=== PATIENT | male | born 1985 | race Caucasian/White ===

== ENCOUNTER 2020-07-05 23:10 | Emergency (ER) | payer BC, SELFPAY ==
--- NOTE | ~2020-07-05 | XR_ITS ---
EXAMINATION: XR chest 2V DATE: 07/05/2020 23:58 INDICATION: Chest pain TECHNIQUE: PA and lateral views of the chest were obtained. COMPARISON: Chest radiograph dated 09/14/2015 FINDINGS: The lungs remain clear with no focal airspace opacities, pulmonary edema, pleural effusion or pneumot horax. The cardiomediastinal silhouette is normal. Cholecystectomy clips in the right upper quadrant. Bones and soft tissues are unremarkable. IMPRESSION: 1. No acute cardiopulmonary disease. Reviewed, dictated and finalized at location A.
[2020-07-05 23:13] VITALS: BP 120/98; PULSE 55; RESP 14; TEMP 36.7; O2SAT 98
--- NOTE | 2020-07-05 23:17 | ED.CHESTPAIN ---
HPI - Chest Pain General Chief Complaint: Chest Pain Stated Complaint: chest pain Time Seen by Provider: 07/05/20 23:17 History of Present Illness HPI narrative: Substernal chest pain for the past 24 hours. Sharp inquality. Worse with taking a deep breath. Associated with Mild SOB. He has never had this pain before. Related Data Home Medications Medication Instructions Recorded Confirmed montelukast mg 07/05/20 Allergies Allergy/AdvReac Type Severity Reaction Status Date / Time Penicillins Allergy Unknown Unknown Verified 07/05/20 23:17 adhesive tape AdvReac Mild SKIN TEARS Verified 07/05/20 23:17 WITH CLOTH TAPE Contrast Media Allergy Mild RASH Uncoded 07/05/20 23:17 Review of Systems Review of Systems: All systems reviewed & are unremarkable except as noted in HPI and below Constitutional: Constitutional: Denies chills and Denies fever(s) ENT: Denies sore throat Cardiovascular: Cardiovascular: Reports chest pain and Denies radiating jaw, neck or arm pain Respiratory: Respiratory: Reports chest congestion, Denies cough and Reports dyspnea Gastrointestinal: Gastrointestinal: Denies abdominal pain, Denies nausea and Denies vomiting Musculoskeletal: Musculoskeletal: Denies back pain [facility] Family History Family History Father Hypertension Family history of lupus erythematosus Other Family history of allergic disorder Family history of malignant neoplasm Social History Social History Smoking status: Former smoker Alcohol intake: current Gender identity (if verbalized by the patient): Male Exam Const: General: healthy appearing, no acute distress and alert Orientation/consciousness: patient oriented x3 HENMT: Head: normal to inspection Chest: Chest palpation & inspection: no tenderness Resp: Effort & Inspection: normal respiratory effort Auscultation: clear to auscultation bilaterally, no rales, no rhonchi and no wheezes Cardio: Jugular venous distension: no JVD Rate: regular rate Rhythm: regular rhythm Heart sounds: no murmurs GI: Inspection: non-distended GI Palp: Yes Soft to palpation and No Tenderness to palpation present (GI) Other: Nontender Skin: General skin exam: normal color Neuro: General: patient oriented x3 and moves all extremities Speech: normal speech Extrem: General: no edema Psych: Appearance: well kempt Affect: normal affect Course Vital Signs Vital signs: Vital Signs Temperature 36.7 C 07/05/20 23:13 Pulse Rate 55 L 07/05/20 23:13 Respiratory Rate 14 07/05/20 23:13 Blood Pressure 120/98 H 07/05/20 23:13 Pulse Oximetry 98 07/05/20 23:13 Temperature 36.7 C 07/05/20 23:13 Pulse Rate 63 07/06/20 02:45 Respiratory Rate 11 L 07/06/20 02:45 Blood Pressure 118/67 07/06/20 02:45 Pulse Oximetry 98 07/06/20 02:45 MDM - Chest Pain Medical Records Data Attestation: I reviewed the patient's medical records. Lab Data Attestation: I reviewed the patient's lab results. Result diagrams: 07/06/20 01:07 07/06/20 01:07 Labs: Lab Results 07/06/20 07/06/20 Range/Units 01:07 01:07 WBC 9.2 (4.5-10.0) K/mm3 RBC 5.37 (4.6-6.20) M/mm3 Hgb 15.3 (14.0-18.0) g/dL Hct 44.4 (42.0-52.0) % MCV 82.7 (80-100) fl MCH 28.5 (26-34) pg MCHC 34.5 (32-36) g/dl RDW 12.9 (11.5-14.5) % Plt Count 212 (150-375) k/mm3 MPV 10.9 H (7.4-10.4) fl Immature Gran % (Auto) 0.4 (0-0.5) % Neut % (Auto) 47.7 (45.5-73.1) % Lymph % (Auto) 36.7 (18.3-44.2) % [place] % (Auto) 8.5 (2.6-8.5) % Eos % (Auto) 6.0 H (0-4.4) % Baso % (Auto) 0.7 (0.2-1.2) % Lymph # (Auto) 3.37 H (0.9-3.2) K/mm3 [place] # (Auto) 0.8 H (0.1-0.6) K/mm3 Eos # (Auto) 0.6 H (0-0.3) K/mm3 Baso # (Auto) 0.1 (0.0-0.1) K/mm3 Abs Immat Gran (auto) 0.04 H (0.00-0
--- NOTE | 2020-07-05 23:29 | ECG_ITS ---
Measurements Intervals [place] Rate: 53 P: 52 [place]: 151 QRS: 30 QRSD: 98 T: 50 QT: 391 QTc: 369 Interpretive Statements SINUS BRADYCARDIA BASELINE WANDER- II, III BORDERLINE ECG Electronically Signed On 07-06-2020 7:16:57 CDT by Gabriel Garvey D.O.
[2020-07-05] MEDS: KETOROLAC (*BKC) 60 MG/2 ML VIAL IM (23:49)
[2020-07-06 00:56] VITALS: BP 135/51; PULSE 75; RESP 20; O2SAT 97
[2020-07-06] MEDS: ALBUTEROL SULFATE NEB 2.5 MG/0.5 ML INH 5 MG INHALATION (01:10)
[2020-07-06 01:11] VITALS: PULSE 64; RESP 18
[2020-07-06 01:14] LABS: Basophils Absolute Auto 0.1 K/mm3 (0.0-0.1); Basophils Percent Auto 0.7 % (0.2-1.2); Eosinophils Absolute Auto 0.6 K/mm3 (0-0.3); Hematocrit 44.4 % (42.0-52.0); Hemoglobin 15.3 g/dL (14.0-18.0); Immature Granulocyte Absolute 0.04 K/mm3 (0.00-0.031); Immature Granulocyte Percent A 0.4 % (0-0.5); Lymphocytes Absolute Auto 3.37 K/mm3 (0.9-3.2); Lymphocytes Percent Auto 36.7 % (18.3-44.2); Mean Corpuscular HGB Conc 34.5 g/dl (32-36); Mean Corpuscular Hemoglobin 28.5 pg (26-34); Mean Corpuscular Volume 82.7 fl (80-100); Mean Platelet Volume 10.9 fl (7.4-10.4); Monocytes Absolute Auto 0.8 K/mm3 (0.1-0.6); Monocytes Percent Auto 8.5 % (2.6-8.5); Neutrophils Absolute Auto 4.4 K/mm3 (1.3-6.7); Neutrophils Percent Auto 47.7 % (45.5-73.1); Platelet Count Result 212 k/mm3 (150-375); Red Blood Count 5.37 M/mm3 (4.6-6.20); Red Cell Distribution Width 12.9 % (11.5-14.5); White Blood Count 9.2 K/mm3 (4.5-10.0)
[2020-07-06 01:20] VITALS: PULSE 69; RESP 18
[2020-07-06 01:26] LABS: Anion Gap 6 mmol/L (8-16); Blood Urea Nitrogen 12 mg/dL (9-20); Calcium 8.7 mg/dL (8.4-10.2); Carbon Dioxide 26 mmol/L (22-30); Chloride 107 mmol/L (98-107); Estimated CRCL calculation 92 ml/min; Estimated Glomerular Filt Rate > 60; Glucose 96 mg/dL (75-110); Potassium 3.8 mmol/L (3.4-5.0); Sodium 139 mmol/L (137-145)
[2020-07-06 01:37] LABS: Troponin I < 0.012 ng/mL (0.000-0.034)
[2020-07-06 02:45] VITALS: BP 118/67; PULSE 63; RESP 11; O2SAT 98
== END 2020-07-06 03:02 | disposition home or self-care (01) ==
PROVIDERS: Emergency Provider Emergency Medicine; PCP Emergency Medicine
DX: R07.2 Precordial pain (principal); Z87.891 Personal history of nicotine dependence; R00.1 Bradycardia, unspecified
CPT/HCPCS: 36415; 71046; 80048; 84484; 85025; 93005; 94640; 96372; 99284; J1885

== ENCOUNTER 2021-03-14 11:23 | Outpatient (CLI) | payer BC, SELFPAY ==
--- NOTE | ~2021-03-14 | XR_ITS ---
XR hand LT min 3V DATE: 03/14/2021 11:41 INDICATION: Fall on the left hand. Third digit and third metacarpal pain TECHNIQUE: 3 views COMPARISON: None FINDINGS: No fracture or dislocation, periosteal reaction or bone destruction. Benign cyst of the lat eral head of the proximal phalanx of the fifth digit. IMPRESSION: No significant abnormality Reviewed, dictated and finalized at location A. IMPRESSION: No significant abnormality
== END 2021-03-14 11:24 | disposition home or self-care (01) ==
LOC: ANHIMG 11:27
PROVIDERS: PCP Emergency Medicine; Visit Provider Emergency Medicine
DX: M79.642 Pain in left hand (principal)
CPT/HCPCS: 73130

== ENCOUNTER 2022-08-02 16:17 | Observation (INO) | payer OTHER, SELFPAY ==
[2022-08-02] VITALS (12 sets, daily range): BP systolic 95–138; BP diastolic 79–83; PULSE 73–89; RESP 16–18; TEMP 36.7–36.9; O2SAT 94–100; BMI 25.3
--- NOTE | ~2022-08-02 | CT_ITS ---
EXAMINATION: CT abdomen pelvis wo con DATE: 08/02/2022 17:22 INDICATION: Lower abdominal pain TECHNIQUE: Computed tomography (CT) of the abdomen and pelvis was performed without intravenous contr ast. The dose-length product (DLP) was 376.57 mGy-cm. Automated exposure control and iterative recons truction technique were employed. COMPARISON: 12/23/2018 FINDINGS: The lung bases are clear. The heart size is normal. There is a small sliding hiatal hernia. The gallbladder is surgically absent. The liver, spleen, pancreas, and adrenal glands are normal. Th e kidneys are unremarkable. There are multiple appendicoliths of the appendix. The appendix measures up to 12 mm in maximum dimension. No definite periappendiceal fat stranding is identified. There is n o free intraperitoneal gas or evidence of bowel obstruction. No pathologically enlarged abdominal or pelvic lymph nodes are identified. IMPRESSION: 1. Dilated appendix containing multiple appendicoliths but without significant periappendiceal inflam matory change. Recommend correlation for right lower quadrant tenderness and possible early appendici tis. Reviewed, dictated and finalized at location B. IMPRESSION: 1. Dilated appendix containing multiple appendicoliths but without significant periappendiceal inflammatory change. Recommend correlation for right lower quad rant tenderness and possible early appendicitis.
[2022-08-02 16:43] LABS: Basophils Percent Auto 0.3 % (0.2-1.2); Eosinophils Absolute Auto 0.1 K/mm3 (0-0.3); Eosinophils Percent Auto 0.7 % (0-4.4); Hematocrit 43.7 % (42.0-52.0); Hemoglobin 14.9 g/dL (14.0-18.0); Immature Granulocyte Absolute 0.06 K/mm3 (0.00-0.031); Immature Granulocyte Percent A 0.5 % (0-0.5); Lymphocytes Percent Auto 11.7 % (18.3-44.2); Mean Corpuscular HGB Conc 34.1 g/dl (32-36); Mean Corpuscular Hemoglobin 27.7 pg (26-34); Mean Corpuscular Volume 81.4 fl (80-100); Mean Platelet Volume 10.6 fl (7.4-10.4); Monocytes Absolute Auto 0.4 K/mm3 (0.1-0.6); Monocytes Percent Auto 3.1 % (2.6-8.5); Neutrophils Absolute Auto 10.8 K/mm3 (1.3-6.7); Neutrophils Percent Auto 83.7 % (45.5-73.1); Platelet Count Result 285 k/mm3 (150-375); Red Blood Count 5.37 M/mm3 (4.6-6.20); Red Cell Distribution Width 12.7 % (11.5-14.5); White Blood Count 12.9 K/mm3 (4.5-10.0)
[2022-08-02] MEDS: ONDANSETRON INJ 4 MG/2 ML VIAL IV PUSH ×2 (16:48→19:37)
[2022-08-02 16:58] LABS: Alanine Aminotransferase 31 U/L (6-50); Albumin Level 4.9 g/dL (3.5-5.1); Alkaline Phosphatase 96 U/L (38-126); Anion Gap 15 mmol/L (8-16); Aspartate Amino Transferase 25 U/L (17-59); Bilirubin,Total 0.5 mg/dL (0.2-1.3); Blood Urea Nitrogen 16 mg/dL (9-20); Calcium 9.3 mg/dL (8.4-10.2); Carbon Dioxide 21 mmol/L (22-30); Chloride 105 mmol/L (98-107); Estimated CRCL calculation 71 ml/min; Estimated Glomerular Filt Rate > 60; Glucose 152 mg/dL (65-110); Lipase 60 U/L (23-300); Potassium 3.8 mmol/L (3.4-5.0); Sodium 141 mmol/L (137-145)
--- NOTE | 2022-08-02 17:09 | ED.GENADULT ---
HPI - General Adult General Chief complaint: Abdominal Pain Stated complaint: severe abd pain Time Seen by Provider: 08/02/22 16:35 History of Present Illness HPI narrative: 37-year-old male presented emergency department for evaluation of lower abdominal pain. Patient states his symptoms started today around noon. Patient does report associated nausea and vomiting. Patient does have prior history of cholecystectomy. Patient has no history of appendectomy. Patient does have history of high cholesterol. Related Data Home Medications Medication Instructions Recorded Confirmed montelukast 10 mg tablet mg 07/05/20 Allergies Allergy/AdvReac Type Severity Reaction Status Date / Time Penicillins Allergy Unknown Unknown Verified 07/05/20 23:17 adhesive tape AdvReac Mild SKIN TEARS Verified 07/05/20 23:17 WITH CLOTH TAPE Contrast Media Allergy Mild RASH Uncoded 07/05/20 23:17 Review of Systems Review of Systems: CONSTITUTIONAL: Denies fever, chills, or sweats. EYES: Denies visual changes, redness, or discharge. ENT: Denies rhinorrhea, congestion, sore throat, or otalgia. CARDIOVASCULAR: Denies chest pain, palpitations, or edema. RESPIRATORY: Denies cough or dyspnea. GASTROINTESTINAL: Right lower quadrant abdominal pain with nausea and vomiting, see HPI GENITOURINARY: Denies dysuria or hematuria. SKIN: Denies rash or itching. MUSCULOSKELETAL: Denies back pain, joint pain, or myalgia. NEUROLOGIC: Denies headache, numbness, or weakness. [facility] Family History Family History Father Hypertension Family history of lupus erythematosus Other Family history of allergic disorder Family history of malignant neoplasm Social History Social History Smoking status: Former smoker Alcohol intake: current Gender identity (if verbalized by the patient): Male Exam Narrative: APPEARANCE: Well appearing, no pain, no distress, well-nourished. HEAD: normocephalic, atraumatic. EYES: PERRLA/EOMI, conjunctivae clear. NOSE: Normal no drainage EARS:TMS clear with good light reflex. THROAT: Pharynx clear, no exudate. RESPIRATORY: Airway patent, respirations nonlabored. Clear to auscultation bilaterally, no rales, rhonchi, wheezing. CARDIOVASCULAR: Regular rate and rhythm without murmurs rubs or gallops. ABDOMINAL: Soft, nondistended normal bowel sounds, right lower quadrant tenderness to palpation with positive Rovsing sign MUSCULOSKELETAL: Moves all extremities. Strength/ROM intact, No edema, No calf tenderness. NEURO: Alert. Cranial nerves II through XII intact. Grossly intact SKIN: Warm, dry. Normal Color Course Course Emergency Course: CT showed evidence of appendicoliths with appendiceal dilatation. Patient does have very reproducible right lower quadrant tenderness to palpation. Vital Signs Vital signs: Vital Signs Temperature 98.1 F 08/02/22 16:19 Pulse Rate 73 08/02/22 16:19 Respiratory Rate 16 08/02/22 16:19 Blood Pressure 95/81 L 08/02/22 16:19 Pulse Oximetry 99 08/02/22 16:19 Oxygen Delivery Room Air 08/02/22 16:19 Temperature 98.1 F 08/02/22 16:19 Pulse Rate 73 08/02/22 16:19 Respiratory Rate 16 08/02/22 16:19 Blood Pressure 95/81 L 08/02/22 16:19 Pulse Oximetry 99 08/02/22 19:00 Oxygen Delivery Room Air 08/02/22 16:19 Medical Decision Making Vital Signs Vital Signs: Vital Signs Temperature 98.1 F 08/02/22 16:19 Pulse Rate 73 08/02/22 16:19 Respiratory Rate 16 08/02/22 16:19 Blood Pressure 95/81 L 08/02/22 16:19 Pulse Oximetry 99 08/02/22 16:19 Oxygen Delivery Room Air 08/02/22 16:19 Temperature 98.1 F 08/02/22 16:19 Pulse Rate 73 08/02/22 16:19 Respiratory Rate 16 08/02/22 16:19 Blood Pressure 95/81 L 08/02/22 16:19 Pulse Oximetry 99 08/02/22 19:00 Oxygen Delivery Room Air 08/02/22 16:19
[2022-08-02] MEDS: HYDROmorphone HCL INJ (*CRX) 1 MG/ML SYR IV PUSH ×2 (17:12→19:37)
[2022-08-02] MEDS: SODIUM CHLORIDE 0.9% IV 1,000 ML 999 ML IV CONT ×2 (17:14→18:33)
[2022-08-02] MEDS: metroNIDAZOLE 500 MG/ISO 100ML 500 MG/100 ML BAG 100 MG IVPB (18:31)
[2022-08-02] MEDS: SODIUM CHLORIDE 0.9% IV 1,000 ML 125 ML IV CONT (20:28)
[2022-08-02 20:44] LABS: Appearance Urine Cloudy (Clear); Bilirubin Urine Negative (Negative); Blood Urine Negative (Negative); Color Urine Yellow (Yellow); Glucose Urine UA Negative (Negative); Ketones Urine Negative (Negative); Leukocyte Esterase Ur Negative LEU/UL (Negative); Nitrate Urine Negative (Negative); Protein Urine Negative (Negative); Urobilinogen Urine 0.2 mg/dL (<2.0); pH Urine 7.5 (5.0-9.0)
[2022-08-02 20:51] LABS: Amorphous Sediment Urine Few; Bacteria Urine Trace /hpf; Mucus Urine Rare /lpf; Squamous Epithelial Cell Urine Rare /hpf (Few); WBC Urine 0-3 /hpf
[2022-08-02 20:52] LABS: Add Urine Microscopic? YES
--- NOTE | 2022-08-02 20:53 | ADMGEN ---
This patient, Sabas Cid, was admitted to Medical Room 254-01. Patient/family oriented to hospital policies and general routines including ID bracelet, bed and alarms, visiting hours, pain management, procedures, bathroom and other care routines, personal items, smoking policy, room service/diet, and visiting hours. Information on how to activate the Rapid Response Team has been discussed. Patient/Family are encouraged to report perceived risks to care and to ask questions if they do not understand what they are told or what they should do.
[2022-08-03] VITALS (9 sets, daily range): BP systolic 103–143; BP diastolic 58–84; PULSE 75–101; RESP 14–18; TEMP 36.6–38.3; O2SAT 93–100
[2022-08-03] MEDS: HYDROmorphone HCL INJ (*CRX) 1 MG/ML SYR IV PUSH ×3 (00:34→07:42)
[2022-08-03] MEDS: SODIUM CHLORIDE 0.9% IV 1,000 ML 125 ML IV CONT ×2 (04:08→10:42)
[2022-08-03] MEDS: LACTATED RINGERS 1,000 ML 30 ML IV CONT (07:40)
[2022-08-03] MEDS: ONDANSETRON INJ 4 MG/2 ML VIAL IV PUSH (07:45)
--- NOTE | 2022-08-03 08:10 | WPDANESEPPF ---
Anes - Initial Pre Proc Eval Procedure: Operation Date: 08/03/22 08:30 Proposed Procedures p Laparoscopic Appendectomy - Juhi Espino MD Date/Time: 08/03/22 08:10 Surgeon: Juhi Espino MD Pre Op Diagnosis: Acute apendicitis Patient Data Age: 37 Gender: M Height: 1.73 m Weight: 75.6 kg Last Vital Signs Temp 37.9 C H 08/03/22 05:14 Pulse 101 H 08/03/22 05:14 Resp 18 08/03/22 05:14 BP 134/64 08/03/22 05:14 Pulse Ox 99 08/03/22 05:14 O2 Del Method Room Air 08/02/22 20:57 Allergies Allergy/AdvReac Type Severity Reaction Status Date / Time Penicillins Allergy Unknown Unknown Verified 08/02/22 22:01 adhesive tape AdvReac Mild SKIN TEARS Verified 08/02/22 22:01 WITH CLOTH TAPE Contrast Media Allergy Mild RASH Uncoded 08/02/22 22:01 Home Medications Medication Instructions Recorded Confirmed Type montelukast 10 mg tablet 10 mg PO DAILY 07/05/20 08/02/22 History Laboratory Tests 08/02/22 08/02/22 08/02/22 16:34 16:34 20:31 WBC 12.9 K/mm3 H K/mm3 (4.5-10.0) RBC 5.37 M/mm3 M/mm3 (4.6-6.20) Hgb 14.9 g/dL g/dL (14.0-18.0) Hct 43.7 % % (42.0-52.0) MCV 81.4 fl fl (80-100) MCH 27.7 pg pg (26-34) MCHC 34.1 g/dl g/dl (32-36) RDW 12.7 % % (11.5-14.5) Plt Count 285 k/mm3 k/mm3 (150-375) MPV 10.6 fl H fl (7.4-10.4) Immature Gran % (Auto) 0.5 % % (0-0.5) Neut % (Auto) 83.7 % H % (45.5-73.1) Lymph % (Auto) 11.7 % L % (18.3-44.2) [place] % (Auto) 3.1 % % (2.6-8.5) Eos % (Auto) 0.7 % % (0-4.4) Baso % (Auto) 0.3 % % (0.2-1.2) Lymph # (Auto) 1.50 K/mm3 K/mm3 (0.9-3.2) [place] # (Auto) 0.4 K/mm3 K/mm3 (0.1-0.6) Eos # (Auto) 0.1 K/mm3 K/mm3 (0-0.3) Baso # (Auto) 0.0 K/mm3 K/mm3 (0.0-0.1) Abs Immat Gran (auto) 0.06 K/mm3 H K/mm3 (0.00-0.031) Absolute Neuts (auto) 10.8 K/mm3 H K/mm3 (1.3-6.7) Absolute Nucleated RBC 0.0 K/mm3 K/mm3 (0.0-0.012) Nucleated RBC % 0.0 % % (0.0-0.2) Sodium 141 mmol/L mmol/L (137-145) Potassium 3.8 mmol/L mmol/L (3.4-5.0) Chloride 105 mmol/L mmol/L (98-107) Carbon Dioxide 21 mmol/L L mmol/L (22-30) Anion Gap 15 mmol/L mmol/L (8-16) BUN 16 mg/dL mg/dL (9-20) Creatinine 1.20 mg/dL mg/dL (0.7-1.3) Estim Creat Clear Calc 71 ml/min ml/min Estimated GFR > 60 (59 - ) Glucose 152 mg/dL H mg/dL (65-110) Calcium 9.3 mg/dL mg/dL (8.4-10.2) Total Bilirubin 0.5 mg/dL mg/dL (0.2-1.3) AST 25 U/L U/L (17-59) ALT 31 U/L U/L (6-50) Alkaline Phosphatase 96 U/L U/L (38-126) Total Protein 8.0 g/dL g/dL (6.3-8.2) Albumin 4.9 g/dL g/dL (3.5-5.1) Lipase 60 U/L U/L (23-300) Urine Color Yellow (Yellow) Urine Appearance Cloudy H (Clear) Urine pH 7.5 (5.0-9.0) Ur Specific [place] 1.020 (1.001-1.035) Urine Protein Negative mg/dL mg/dL (Negative) Urine Glucose (UA) Negative mg/dL mg/dL (Negative) Urine Ketones Negative mg/dL mg/dL (Negative) Ur Blood (Man) Negative (Negative) Urine Nitrate Negative (Negative) Urine Bilirubin Negative (Negative) Urine Urobilinogen 0.2 mg/dL mg/dL (<2.0) Leukocyte Esterase Rfl Negative ALISON/UL ALISON/UL (Negative) Urine RBC 6-10 /hpf H /hpf (0-2) Urine WBC 0-3 /hpf /hpf Ur Squamous Epith Cells Rare /hpf /hpf (Few) Amorphous Sediment Few H (None) Urine Bacteria Trace /hpf /hpf Urine Mucus Rare /lpf /lpf Patient hx anesthesia problems: none Family hx an
--- NOTE | 2022-08-03 08:21 | PM.IMHP ---
H&P: HPI History of Present Illness Date/Time: 08/03/22 08:21 Chief Complaint: acute appendicitis Narrative: The patient male presenting to the emergency department complaining of severe right upper abdomen. The patient reports the pain started acutely around 1:00 p.m. and was initially more diffuse in nature. The patient reports the pain is now more localized and sharp, concentrated in the right lower quadrant. The patient reports associated nausea and vomiting. The patient reports he has had no appetite since the episode started. The patient also reports some diarrhea. Review of Systems Constitutional: Constitutional: Reports as per HPI, Reports anorexia, Denies chills, Reports fatigue, Reports fever(s), Reports lethargy, Reports malaise, Reports poor appetite, Reports weakness, Denies weight gain and Denies weight loss Eyes: Eyes: Reports no additional eye complaints ENT: Reports system reviewed and no additional complaints, except as documented Cardiovascular: Cardiovascular: Reports no additional cardiovascular complaints Respiratory: Respiratory: Reports no additional respiratory complaints Gastrointestinal: Gastrointestinal: Reports as per HPI, Reports abdominal pain, Reports bloating, Reports GI cramping, Reports diarrhea, Reports nausea and Reports vomiting Musculoskeletal: Musculoskeletal: Reports no additional musculoskeletal complaints Integumentary/Breasts: Skin/Breast: Reports system reviewed and no additional complaints, except as docu Neurologic: Reports system reviewed and no additional complaints, except as documented Psychiatric: Psychiatric: Reports no additional psychiatric complaints Endocrine: Endocrine: Reports no additional endocrine complaints Hematologic/Lymphatic: Hematologic/Lymphatic: Reports no additional hematologic/lymphatic complaints Allergic/Immunologic: Allergic/Immunologic: Reports no additional allergic/immunologic complaints PMFSH Past Medical History Medical History Hyperlipidemia Family History Family History Father Hypertension Family history of lupus erythematosus Other Family history of allergic disorder Family history of malignant neoplasm Social History Social History Smoking packs per day: 1 Smoking cigarettes per day: 20.0 Years smoked: 20 Smoking pack-years: 20.00 Smoking status: Former smoker Tobacco type: cigarettes Second hand tobacco smoke exposure: No Alcohol intake: current Drinks per week: 1 Substance use: never Substance use type: does not use Gender identity (if verbalized by the patient): Male Spiritual care concerns: No Meds Home Medications and Allergies Home Medications Medication Instructions Recorded Confirmed Type montelukast 10 mg tablet 10 mg PO DAILY 07/05/20 08/02/22 History Allergies Allergy/AdvReac Type Severity Reaction Status Date / Time Penicillins Allergy Unknown Unknown Verified 08/02/22 22:01 adhesive tape AdvReac Mild SKIN TEARS Verified 08/02/22 22:01 WITH CLOTH TAPE Contrast Media Allergy Mild RASH Uncoded 08/02/22 22:01 Vital Signs Vital Signs - 24 hr 08/02/22 16:19 08/02/22 16:32 08/02/22 17:24 Temperature 36.7 C Pulse Rate 73 Respiratory Rate 16 Blood Pressure 95/81 L Pulse Oximetry 99 100 99 Oxygen Delivery Room Air 08/02/22 17:45 08/02/22 18:00 08/02/22 18:15 Temperature Pulse Rate Respiratory Rate Blood Pressure Pulse Oximetry 94 99 99 Oxygen Delivery 08/02/22 18:30 08/02/22 18:45 08/02/22 19:00 Temperature Pulse Rate Respiratory Rate Blood Pressure Pulse Oximetry 98 99 99 Oxygen Delivery 08/02/22 20:57 08/02/22 19:45 08/02/22 22:00 Temperature 36.9 C 36.9 C Pulse Rate 73 75 89 Respiratory Rate 16 18 18 Blood Pressure 138/
[2022-08-03] MEDS: KETOROLAC 15 MG/ML VIAL (*BKC) IV PUSH (08:23)
[2022-08-03] MEDS: levoFLOXacin 500 MG/D5W 100 ML 500 MG/100 ML BAG 100 MG IVPB (08:24)
[2022-08-03] MEDS: metroNIDAZOLE 500 MG/ISO 100ML 500 MG/100 ML BAG 100 MG IVPB (08:24)
--- NOTE | 2022-08-03 08:29 | WPDHPUPDATE1 ---
History and Physical Update Update Date/Time: 08/03/22 08:29 History and Physical has been reviewed, including an updated exam of the patient. There are NO changes in the patient's condition. Risks, benefits, and alternatives have been discussed and questions answered. Patient agrees to proceed with procedure.
--- NOTE | 2022-08-03 08:30 | SUR.PREOP ---
PO TYLENOL CANCELLED. PER ANESTHESIA PATIENT WILL RECEIVE IV TYLENOL IN OR
[2022-08-03] MEDS: BUPIVACAINE/EPINEPHRINE 0.25% 50 ML VIAL 30 ML INFILTRATE (08:52)
--- NOTE | 2022-08-03 09:10 | P.OP_ITS ---
Procedure Note - Detailed Date of Procedure 08/03/22 Pre-op Diagnosis Acute apendicitis Post-op Diagnosis Same Procedure Performed laparoscopic appendectomy Surgeon Juhi Espino MD Anesthesia General Indications 37 y/o M c acute appendicitis Findings acute gangrenous appendicitis with no evidence of perforation Description of Procedure The patient was taken to the operating room and placed in the supine position. After adequate induction of general anesthesia, the patient was prepped and draped in the normal sterile fashion. A time-out was then done to verify the patient's identity, as well as the procedure being performed. I began by making a 5 mm incision in the infraumbilical region, through this a Veress needle was placed in the peritoneal cavity. CO2 gas was then insufflated and after adequ ate pneumoperitoneum was achieved the Veress needle was removed. Then placed a 5 mm Optiview trocar under direct visualization into the peritoneal cavity. I then insufflated through this trocar site and the endoscope was placed into the trocar. Under direct visualization, placed 2 further 5 mm suprapubic port as well as an additional 12 mm port in the left lower abdomen. At this point identified the cecum, I retracted the cecum both medially and superiorly allowing me to expose the appendix. The appendix was noted to be very dilated and inflamed especially towards the tip. There was noted to be gangrenous changes throughout the appendix, as well as multiple fecaliths. No obvious abscess was noted. The appendix was noted to be very adherent to the right lateral sidewall as well as the ileum. I was able to bluntly dissect the appendix from these adhesions. I then was able to locate the base of the appendix with the cecum. I created a window with the [place] dissector between the appendix itself and the mesoappendix. I then transected the mesoappendix with a white vascular staple load. The Endo-PRIYANK was then reloaded with a blue staple load and I transected the base of the appendix. Once the specimen was completely detached, an endo-pouch was placed into the 12 mm port site and the specimen was removed through the endo-pouch. The appendiceal specimen will be sent to pathology for further review. I then copiously irrigated the right lower quadrant. Hemostasis was noted at both staple lines no other pathology was seen in this area. I then moved the camera to the suprapubic port to check our its port of entry. No iatrogenic injury or other pathology was noted in the upper abdomen. I then closed the 12 mm port site with a Vinnie code and 0 Vicryl suture under direct visualization. At this point, the abdomen was desufflated and all ports were removed. All port sites were closed with 4 Monocryl subcuticular suture. Dermabond was placed on all wounds. The patient tolerated the procedure well and was extubated in the operating room postop. He will be sent to the recovery room in stable condition. Estimated Blood Loss 10 Drains No Packing No Pathology Yes Complications No immediate complications Condition Stable Disposition PACU [facility] Billing Surgery - Charge Forward: Surgery Billing
--- NOTE | 2022-08-08 10:18 | PM.DS ---
DS: Admitting Diagnosis Discharge Date 08/03/22 Admitting Diagnosis acute appendicitis DS: Discharge Diagnosis Discharge Diagnosis (1) Acute appendicitis: Code(s): K35.80 - Unspecified acute appendicitis Status: Acute Assessment and Plan: s/p lap appy, doing well, routine postop care, f/u 2 wks DS: Summary Hospital Course Reason for hospitalization: acute appendicitis Hospital Course: Pt is a 37 y/o M presenting to ED for eval of severe RLQ abd pain. Workup in ED, including imaging, significant for acute appy. Pt admitted and started on IV abx. Upon eval, decision to proceed c urgent appendectomy. Pt taken to OR and lap appy performed. Pt c evidence of gangrenous changes but no obvious perforation. Postop, pt did well and was transferred back to floor. Pt was able to rosalino diet and ambulate s issue. Pt will be dc'd c po analgesia and f/u in 2 wks. Time Spent with Patient Time attestation: Total time spent providing and/or coordinating discharge services: Exam Const: General: cooperative, healthy appearing, comfortable and no acute distress Resp: Auscultation: clear to auscultation bilaterally Cardio: Rate: regular rate Rhythm: regular rhythm GI: Inspection: normal to inspection, non-distended and incision GI Palp: Yes abdominal tenderness, Yes Soft to palpation, Yes Tenderness to palpation present (GI), No Guarding due to palpation present (GI) and No Rigid due to palpation DS: Data Data Completed and Pending Completed studies during hospitalization: Pending at discharge 08/03/22 08:42 Surgical [PTH] Routine Discharge Plan Discharge Attending physician on discharge: Juhi Espino Consulting providers: Alvaro Taylor Discharging Clinician: Juhi Espino Anticipated Discharge Date/Time: 08/03/22 13:00 Patient Disposition: Home, Self-Care Activity: other - see discharge instructions Diet: as tolerated and regular Wound Care Instructions: incision open to air and other - see discharge instructions Discharge Instructions: DISCHARGE INSTRUCTION SHEET FOR HERNIA, GALLBLADDER AND APPENDIX SURGERIES DR. ESPINO PATIENT TO TAKE HOME 1. May shower in 24 hours, no soaking in bath x 2weeks. 2. Call office for: Wound increasingly painful or bleeding Vomiting Fever of greater than 101 degrees 3. If no bowel movement for three days, take 1 oz. (30 ml) Milk of Magnesia or MiraLax 17g 1 to 2 times daily. 4. No heavy lifting > 10-15 pounds x 6 weeks for hernia repairs and 2 weeks for laparoscopic cholecystectomy or appendectomy. 5. No driving for 3 days or while taking narcotic pain medications. 6. Ice to surgical site for 48 hours (30 min on, then 30 min off). 7. Up walking 10-30 minutes three times per day. 8. Resume previous home medications. 9. Follow-up 10-14 days in office for wound check or as previously scheduled. ([phone]) 10. Oral pain medications prescription to be sent to pharmacy. Take Tylenol 500mg every 6 hours and Ibuprofen 600mg every 6 hours for the first 2 days, then as needed. 11. NUTRITION: Start out by drinking fluids and increase your diet as tolerated. If you experience nausea, try dry toast, crackers, and 7-UP. If nausea or vomiting persists, contact your surgeon?s office. 12. Gallbladders-Low Fat Diet for 2 weeks (send care note of low fat diet) 13. Inguinal Hernias-wear scrotal support for 48 hours 14. Abdominal Hernias-if sent home with abdominal binder, wear for the first 2 weeks (may remove to shower or at night to sleep).
== END 2022-08-03 13:32 | disposition home or self-care (01) ==
LOC: ANHED 18:06 → ANH2MED 18:49
PROVIDERS: Emergency Medicine; Admitting Provider Surgery; Emergency Provider Emergency Medicine; PCP Emergency Medicine; Visit Provider Surgery
PROC: 0DTJ4ZZ Resection of Appendix, Percutaneous Endoscopic Approach (ICD-10-PCS; CPT 44970; principal; 2022-08-03 08:30)
DX: K35.80 Unspecified acute appendicitis (principal); Z87.891 Personal history of nicotine dependence
CPT/HCPCS: 44970; 36415; 74176; 80053; 81001; 83690; 85025; 88304; 96361; 96365; 96367; 96375; 96376; 99285; A9270; G0378; J0131; J1100; J1170; J1885; J1956; J2250; J2270; J2405; J2704; J7030; J7120

== ENCOUNTER 2023-11-29 08:54 | Outpatient (CLI) | payer OTHER, SELFPAY ==
--- NOTE | ~2023-11-29 | XR_ITS ---
Left Knee Technique: AP, lateral, and sunrise views were obtained. Clinical History: Pain Findings: No fracture or dislocation is seen. Osseous alignment is anatomic. Joint spaces are preserv ed without degenerative or erosive change. Soft tissues are unremarkable. No joint effusion is seen. Impression: Unremarkable left knee radiographs. Reviewed, dictated and finalized at location . ER MACHINE OPERATOR Impression: Unremarkable left knee radiographs.
== END 2023-11-29 08:55 ==
PROVIDERS: PCP Emergency Medicine; Visit Provider Emergency Medicine
DX: M25.562 Pain in left knee (principal)
CPT/HCPCS: 73564